=== PATIENT | female | born 1995 | race Two or more races ===

== ENCOUNTER 2017-04-11 17:04 | Emergency (ER) | payer OTHER ==
[~2017-04-11] VITALS: Ht 152.4 cm; Wt 48.2 kg
[~2017-04-11 17:04] MED LIST: CETIRIZINE HCL10 M2 PO; INTUNIV4 MG PO; LAMICTAL200 MG PO; PEPCID20 MG PO; RITALIN10 MG PO; TRI-PREVIFEM1 EACH PO; ZOLOFT100 MG PO
[2017-04-11] MEDS ORDERED: MOTRIN600 MG PO (21:35)
[2017-04-11 22:14] VITALS: BP 100/51
== END 2017-04-11 22:14 | disposition home or self-care (01) ==
LOC: EME 17:04
DX: J10.1 Influenza due to other identified influenza virus with other respiratory manifestations (principal)
CPT/HCPCS: 87502; 99281; 99283